=== PATIENT | female | born 1935 | race Caucasian/White ===

== ENCOUNTER 2021-11-19 15:00 | Outpatient (CLI) | payer MEDICARE | END 2021-11-19 15:01 | disposition home or self-care (01) | LOC: CSHMRI 15:00 | PROVIDERS: ATTEND Nurse Practitioner Family | DX: S22.080A Wedge compression fracture of T11-T12 vertebra, initial encounter for closed fracture (principal); Z98.890 Other specified postprocedural states; M40.204 Unspecified kyphosis, thoracic region; M47.814 Spondylosis without myelopathy or radiculopathy, thoracic region; M43.8X4 Other specified deforming dorsopathies, thoracic region | CPT/HCPCS: 72146 ==